=== PATIENT | female | born 1985 | race Hispanic/Latino ===

== ENCOUNTER → 2018-02-07 | Day surgery (SDC) | payer OTHER ==
[~2018-02-07] VITALS: Ht 157.5 cm; Wt 67.1 kg
--- NOTE | 2018-02-08 12:02 | Operative Report ---
Operative/Inv Procedure Report Surgery Date: 02/07/18 Name of Procedure: Right ureteroscopy with stone extraction and stent placement Pre-Operative Diagnosis: Right distal UVJ stone 3 mm and right renal stone 1 mm Post-Operative Diagnosis: Right renal 1 mm stone no distal UVJ stone Estimated Blood Loss: elen Surgeon/Municipal Court Magistrate: May Hickman MD Anesthesia: laryngeal mask airway Drains: 6 x 22 cm ureteral stent Microbiology: Stone fragment Complications: None Condition: Stable Operative Indication: Right renal and UVJ stone with renal colic Operative/Procedure Note Note: This is a 32-year-old female with a history of bilateral kidney stones with right renal colic. She had a CT scan several weeks ago that showed a distal UVJ stone 3 mm in size with hydroureteronephrosis mild. She was given opportunity for conservative management with hydration and pain management and Flomax. She was straining her urine and taking pain medicine but she did not note any stone passage. She continued to have discomfort and wished to have it treated surgically. This surgery was reviewed with the patient with the netter out less. All questions were answered after the risks benefits and alternatives were given. Consent was signed in the holding area. Patient was taken to the operating placed on the operative table supine position. Timeout was performed and IV antibiotics were infused. LMA anesthesia was begun and patient was placed in the dorsal lithotomy position. She was prepped and draped in the standard sterile fashion. Cystoscopy was performed and the bladder was globally inspected inspected and no abnormalities were appreciated. The ureteral orifices were in the normal anatomic position. The right ureter ureteral orifice was cannulated with a solo guidewire and the proximal portion was seen in the renal pelvis under fluoroscopy. The semirigid ureteroscope was then attempted to be placed into the ureter however it was not possible due to J hooking. As result a second safety wire superstiff Amplatz Super Stiff was placed using the dual-lumen catheter. The semirigid ureteroscope was then placed into the ureter using the superstiff wire. This was taken up to the renal pelvis and noted ureteral stones were visualized. As result the safety wire was placed back in and then the flexible digital ureteroscope was then used to traverse the ureter into the renal pelvis. The calyces were examined upper middle and lower and no 3 mm stone was visualized however 1 mm stone in the lower pole was seen. This was grasped with the 0 tip basket and removed and sent for pathology. All the calyces were examined again and again no stones were be sheeted. A retrograde pyelogram was then performed to ensure that there were no abnormal anatomy that was being missed. No stones were seen so the ureteroscope was removed and the ureter was examined on the way out and no stones were seen in the ureter again. However in the distal ureter there was an area of ureteral injury that was the area likely that the stone was sitting for the weeks prior. The safety wire was then used to place a 6 x 22 cm ureteral Coloplast stent which was placed without difficulty. There were proximal portion was seen in the renal pelvis and the distal portion was seen in the bladder cystoscopically and fluoroscopically. Patient tolerated the procedure well. The stone was sent for analysis. Patient was transferred to the recovery room stable condition. Findings: no distal UVJ stone 3mm but 1 mm right lower pole stone seen and taken Discharge Disposition: PACU
--- NOTE | 2018-02-08 15:00 | RADIOLOGY REPORT ---
EXAMINATION: INTRAOPERATIVE FLUOROSCOPY DURING RIGHT URETEROSCOPY WITH STENT PLACEMENT CLINICAL INDICATION: 32-year-old female presents for right ureteroscopy. COMPARISON: None. TECHNIQUE: The procedure was performed by Dr. Hickman in the operating room. FLUOROSCOPY TIME: 0.10 seconds. Number of images: 5 FINDINGS: Fluoroscopic images demonstrate near fluoroscopy with retrograde nephrostogram and ureteral stent placement. IMPRESSION: Intraoperative fluoroscopy was utilized by Dr. Hickman during right ureteroscopy with stent placement. Please refer to the operative report for a detailed description of the procedure and the real-time findings made and acted upon by the surgeon.
== END ==
LOC: STS 01:24
DX: N20.0 Calculus of kidney (principal); Z87.442 Personal history of urinary calculi; R35.0 Frequency of micturition
CPT/HCPCS: 74018; 81025; 82355; J0131; J0690; J1100; J2250; J2405